=== PATIENT | female | born 1950 | race Caucasian/White ===

== ENCOUNTER 2018-11-14 07:49 | Emergency (ER) | payer MEDICARE ==
[~2018-11-14] VITALS: Ht 167.6 cm; Wt 70.3 kg
[2018-11-14 07:55] VITALS: BP 129/73
--- NOTE | 2018-11-14 08:56 | NUR ---
Updated by Dr Min pt for discharge-ACI given. Thumb spica applied on R Hand. Home Ambulatory Stable
== END 2018-11-14 08:57 | disposition home or self-care (01) ==
LOC: ER 07:54
DX: S63.681A Other sprain of right thumb, initial encounter (principal); S63.690A Other sprain of right index finger, initial encounter; S63.591A Other specified sprain of right wrist, initial encounter; Z88.0 Allergy status to penicillin; W01.0XXA Fall on same level from slipping, tripping and stumbling without subsequent striking against object, initial encounter; Y93.89 Activity, other specified; Y92.89 Other specified places as the place of occurrence of the external cause; Y99.8 Other external cause status
CPT/HCPCS: 29125; 73110; 73130; 99283; A4606

== ENCOUNTER 2019-05-20 08:01 | Emergency (ER) | payer MEDICARE ==
[~2019-05-20] VITALS: Ht 165.1 cm; Wt 74.8 kg
[2019-05-20 08:16] VITALS: BP 128/73
[2019-05-20] MEDS ORDERED: TDAP [DIPH/PERTUSSIS/TET] 0.5 ML VIAL IM ONE ×2 (08:40→09:00)
--- NOTE | 2019-05-20 08:56 | NUR ---
Patient discharged to home in stable condition. Written and verbal after care instructions given. Patient verbalizes understanding of instruction.
== END 2019-05-20 08:58 | disposition home or self-care (01) ==
LOC: ER 08:01
DX: T63.391A Toxic effect of venom of other spider, accidental (unintentional), initial encounter (principal); L03.116 Cellulitis of left lower limb; Z88.0 Allergy status to penicillin; Y92.89 Other specified places as the place of occurrence of the external cause
CPT/HCPCS: 90715

== ENCOUNTER 2019-06-03 19:58 | Emergency (ER) | payer MEDICARE ==
[~2019-06-03] VITALS: Ht 167.6 cm; Wt 72.6 kg
--- NOTE | 2019-06-03 20:26 | NUR ---
"SOB "SHALLOW" SINCE LUNCHTIME, HAS "VERY VERY SLIGHT COPD" PT AAOX4, -SOB, NAD NOTED, VSS, PENDING MD B[place]
[2019-06-03 20:45] VITALS: BP 123/80
[2019-06-03 21:23] LABS: BASOPHILS # (AUTO) 0.1 /CMM (0.0-0.2); BASOPHILS % (AUTO) 1.2 % (0.0-2.0); EOSINOPHILS % (AUTO) 4.2 % (0.0-6.0); HEMATOCRIT 43 % (33-45); HEMOGLOBIN 14.2 g/dL (11.5-14.8); LYMPHOCYTES # (AUTO) 2.3 /CMM (0.8-4.8); LYMPHOCYTES % (AUTO) 27.1 % (20.0-44.0); MEAN CORPUSCULAR HGB CONC 33 g/dl (31.0-36.0); MEAN CORPUSCULAR VOLUME 86 fL (82-100); MONOCYTES # (AUTO) 0.7 /CMM (0.1-1.30); MONOCYTES % (AUTO) 8.2 % (2.0-12.0); NEUTROPHILS # (AUTO) 5.1 /CMM (1.8-8.9); NEUTROPHILS % (AUTO) 59.3 % (43.0-81.0); PLATELET COUNT (AUTO) 464 /CMM (150-450); RED BLOOD CELL COUNT(AUTO) 4.96 MIL/uL (4.0-5.2); WHITE BLOOD COUNT (AUTO) 8.6 K/uL (4.3-11.0)
[2019-06-03 21:38] LABS: CALCIUM, SERUM 9.6 mg/dL (8.5-10.1); CARBON DIOXIDE 28 mmol/L (21-32); CHLORIDE 106 mmol/L (98-107); CREATININE 1.2 mg/dL (0.6-1.3); GLUCOSE 106 mg/dL (74-106); POTASSIUM 4.5 mmol/L (3.5-5.1); SODIUM SERUM 143 mmol/L (136-145); UREA NITROGEN, BLOOD 14 mg/dL (7-18)
[2019-06-03] MEDS ORDERED: diphenhydrAMINE HCL 25 MG CAPSULE ONE (22:06)
[2019-06-03] MEDS ORDERED: diphenhydrAMINE HCL 25 MG CAPSULE PO ONE (22:30)
--- NOTE | 2019-06-03 22:30 | NUR ---
Patient discharged to home in stable condition. Written and verbal after care instructions given. Patient verbalizes understand ing of instruction. IV removed. Catheter intact and site benign. Pressure and 4x4 applied to site. No bleeding noted.
== END 2019-06-03 23:05 | disposition home or self-care (01) ==
LOC: ER 20:01
DX: S70.362A Insect bite (nonvenomous), left thigh, initial encounter (principal); L03.116 Cellulitis of left lower limb; R06.02 Shortness of breath; Z88.0 Allergy status to penicillin; W57.XXXA Bitten or stung by nonvenomous insect and other nonvenomous arthropods, initial encounter; Y93.89 Activity, other specified; Y92.89 Other specified places as the place of occurrence of the external cause; Y99.8 Other external cause status
CPT/HCPCS: 36415; 71045; 80048; 84484; 85025; 93005; 99284; Q0163

== ENCOUNTER 2020-06-09 04:14 | Emergency (ER) | payer MEDICARE ==
[~2020-06-09] VITALS: Ht 162.6 cm; Wt 66.7 kg
[2020-06-09 04:20] VITALS: BP 123/78
--- NOTE | 2020-06-09 04:35 | NUR ---
AT BEDSIDE FOR MANUAL REMOVAL OF STOOL.
--- NOTE | 2020-06-09 04:46 | NUR ---
Patient discharged to home in stable condition. Written and verbal after care instructions given. Patient verbalizes understanding of instruction.
== END 2020-06-09 04:47 | disposition home or self-care (01) ==
LOC: ER 04:19
DX: K56.41 Fecal impaction (principal); Z88.0 Allergy status to penicillin